=== PATIENT | female | born 1975 | race Caucasian/White ===

== ENCOUNTER 2021-10-13 14:17 | Outpatient (CLI) | payer OTHER, SELFPAY ==
[2021-10-13 14:35] VITALS: BP 133/89; PULSE 65; RESP 18; TEMP 37.2; O2SAT 98
[2021-10-13 14:47] VITALS: BMI 27.9
[2021-10-13 15:09] VITALS: BP 120/79; PULSE 67; RESP 18; TEMP 37.2; O2SAT 97
[2021-10-13 16:06] VITALS: BP 121/88; PULSE 65; RESP 15; TEMP 37.2; O2SAT 99
== END 2021-10-13 14:18 | disposition home or self-care (01) ==
LOC: OPS 14:20
PROVIDERS: PCP Nurse Practitioner Family; Visit Provider Nurse Practitioner Family
DX: U07.1 COVID-19 (principal)
CPT/HCPCS: 96365

== ENCOUNTER 2023-07-31 07:52 | Outpatient (CLI) | payer OTHER, SELFPAY ==
--- NOTE | 2023-07-31 08:01 | MM_ITS ---
WS: [id number] BILATERAL SCREENING DIGITAL BREAST MAMMOGRAPHY WITH BRODERICK DISPLACEMENT VIEWS. CAD PERFORMED. HISTORY: SCREENING COMPARISON: 01/20/2019 and 04/18/2016 Bilateral craniocaudal and mediolateral oblique views are performed with tomosynthesis and SM. Broderick displacement views in CC and MLO projection also performed. Breasts composition: There are scattered areas of fibroglandular density. Retropectoral implants are intact. There is a biopsy clip upper outer quadrant RIGHT breast. No disto rtion. IMPRESSION: MM/[place] [id number] BI-RADS: 2-Benign FOLLOW-UP: 1 Year Follow-up
== END 2023-07-31 07:53 | disposition home or self-care (01) ==
PROVIDERS: PCP Nurse Practitioner Family; Visit Provider Nurse Practitioner Family
DX: Z12.31 Encounter for screening mammogram for malignant neoplasm of breast (principal)
CPT/HCPCS: 77063; 77067

== ENCOUNTER 2025-06-23 09:24 | Outpatient (CLI) | payer OTHER, SELFPAY ==
--- NOTE | 2025-06-23 09:35 | XR_ITS ---
WS: [id number] Lumbar spine with flexion, extension, and neutral lateral, 06/23/2025 Clinical Data: RADICULOPATHY, LUMBAR REGION Comparison: Lumbar spine, 02/27/2010 Findings: No compression fractures are seen. There is anterior subluxation of 1.6 cm of L5 on S1 with degenerative disc narrowing. There is minimal osteoarthritis of the lumbar vertebral bodies. On flexion and extension there is no instability. There are right upper quadrant cholecystectomy clips. No limitation of motion or subluxation is seen. There is degenerative disc narrowing and anterior spurring of T11-T12. There is osteoarthritis of the facet joints from L3-L4 to L5-S1. XR/XR lumbar spine f/e only [id number] Impression: 1. 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 2. Anterior subluxation of 1.6 cm of L5 on S1 with degenerative disc narrowing. 3. No instability on flexion or extension.
== END 2025-06-23 09:25 | disposition home or self-care (01) ==
PROVIDERS: PCP Nurse Practitioner Family; Visit Provider General Practice
DX: M54.16 Radiculopathy, lumbar region (principal); M15.9 Polyosteoarthritis, unspecified; S33.39XA Dislocation of other parts of lumbar spine and pelvis, initial encounter; X58.XXXA Exposure to other specified factors, initial encounter; Z90.49 Acquired absence of other specified parts of digestive tract; M47.817 Spondylosis without myelopathy or radiculopathy, lumbosacral region
CPT/HCPCS: 72120